=== PATIENT | male | born 1965 | race Caucasian/White ===

== ENCOUNTER 2024-01-20 22:19 | Emergency (ER) | payer SELFPAY ==
[~2024-01-20] VITALS: Ht 167.6 cm; Wt 68.0 kg
[2024-01-20 22:29] VITALS: O2SAT 96
[2024-01-21 01:50] VITALS: BP 132/95; PULSE 98; RESP 16; TEMP 36.78072; O2SAT 16
== END 2024-01-21 01:53 | disposition home or self-care (01) ==
LOC: ER 22:19
DX: F10.129 Alcohol abuse with intoxication, unspecified (principal); Y90.9 Presence of alcohol in blood, level not specified
CPT/HCPCS: 99283